=== PATIENT | male | born 1970 | race Asian ===

== ENCOUNTER 2017-07-07 00:08 | Emergency (ER) | payer MEDICAID, OTHER ==
[~2017-07-07] VITALS: Ht 185.4 cm; Wt 125.8 kg
[2017-07-07] MEDS ORDERED: ALBUTEROL/IPRATROPIUM 2.5MG/0.5MG, 3 ML ONE (00:41)
[2017-07-07] MEDS ORDERED: SODIUM CHLORIDE FLUSH 10ML SYR IVF ONE (01:00)
[2017-07-07] MEDS ORDERED: ALBUTEROL SULFATE 2.5 MG/3 ML NPPB ONE (01:00)
[2017-07-07] MEDS ORDERED: ASPIRIN 81 MG TABLET CHEW PO ONE ×2 (01:00→01:30)
[2017-07-07] MEDS ORDERED: SODIUM CHLORIDE 0.9% 1,000ML IVBOLUS ONE (01:00)
[2017-07-07] MEDS ORDERED: ONDANSETRON 2MG/ML, 2ML IVPush ONE (01:00)
[2017-07-07] MEDS ORDERED: KETOROLAC 30 MG/1 ML IVPush ONE (01:00)
[2017-07-07] MEDS ORDERED: ONDANSETRON 2MG/ML, 2ML ONE (01:02)
[2017-07-07] MEDS ORDERED: ASPIRIN 81 MG TABLET CHEW ONE (01:02)
[2017-07-07] MEDS ORDERED: KETOROLAC 30 MG/1 ML ONE (01:02)
[2017-07-07 01:06] LABS: ASPARTATE AMINO TRANSFERASE 21 U/L (15-37); BLOOD UREA NITROGEN 20 mg/dL (7-18)
[2017-07-07 01:12] LABS: IS PT STATUS REG ER OR PRE ER? YES
[2017-07-07 01:49] LABS: HEMOGLOBIN 18.2 g/dL (13.7-18.0); WHITE BLOOD COUNT 12.2 x10^3/uL (3.4-10)
[2017-07-07] MEDS ORDERED: OMNIPAQUE 350 MG/ML, 100ML BOTTLE ONE (02:18)
[2017-07-07] MEDS ORDERED: APAP/CODEINE 300/30MG TABLET PO PRN (03:30)
[2017-07-07 04:36] LABS: IS PT STATUS REG ER OR PRE ER? YES
[2017-07-07 04:43] VITALS: BP 131/88
== END 2017-07-07 04:59 | disposition home or self-care (01) ==
LOC: ED 00:40
DX: R07.9 Chest pain, unspecified (principal); J20.8 Acute bronchitis due to other specified organisms; E11.9 Type 2 diabetes mellitus without complications; J45.909 Unspecified asthma, uncomplicated; F17.200 Nicotine dependence, unspecified, uncomplicated
CPT/HCPCS: 36415; 71020; 71275; 80053; 84484; 85025; 93005; 94640; 96361; 96374; 96375; 99285; J1885; J2405; J7030; J7512; Q9967; J7613

== ENCOUNTER 2017-09-13 14:38 | Emergency (ER) | payer OTHER ==
[~2017-09-13] VITALS: Ht 185.4 cm; Wt 129.9 kg
[2017-09-13 14:44] VITALS: BP 138/91
== END 2017-09-13 16:58 | disposition home or self-care (01) ==
LOC: ED 16:50
DX: J06.9 Acute upper respiratory infection, unspecified (principal); J20.9 Acute bronchitis, unspecified; E11.65 Type 2 diabetes mellitus with hyperglycemia
CPT/HCPCS: 71046; 93005; 99284

== ENCOUNTER 2018-11-18 19:31 | Inpatient (IN) | payer OTHER ==
[~2018-11-18] VITALS: Ht 185.4 cm; Wt 130.2 kg
[~2018-11-18 19:31] MED LIST: KETOROLAC 30 MG/1 ML ONE
[2018-11-18] MEDS ORDERED: ONDANSETRON 2MG/ML, 2ML ONE ×2 (19:53→22:47)
[2018-11-18] MEDS ORDERED: HYDROmorphone 1 MG/ML, 1ML ONE (19:53)
[2018-11-18] MEDS ORDERED: HYDROmorphone 1 MG/ML, 1ML IV ONE (20:00)
--- NOTE | 2018-11-18 20:04 | NUR ---
PT RESTING IN BED, MEDICATED FOR PAIN, AWAITING CT
--- NOTE | 2018-11-18 20:27 | NUR ---
REPORT FROM DANIEL SOTO. PT SLEEPING SOUNDLY, AROUSABLE. PT UPDATED ON POC, NEED FOR URINE. URINAL AT BS, PT TO CT.
[2018-11-18] MEDS ORDERED: ONDANSETRON 2MG/ML, 2ML IVPush ONE (20:30)
[2018-11-18] MEDS ORDERED: SODIUM CHLORIDE FLUSH 10ML SYR IVF ONE (20:30)
[2018-11-18 20:34] LABS: BASOPHILS # (AUTO) 0.03 x10^3/uL (0-0.1); BASOPHILS % (AUTO) 0 % (0-1); EOSINOPHILS # (AUTO) 0.04 x10^3/uL (0-0.4); EOSINOPHILS % (AUTO) 0 % (1-7); LYMPHOCYTES # (AUTO) 1.62 x10^3/uL (1-3.4); LYMPHOCYTES % (AUTO) 10 % (22-44); MD NO; MEAN CORPUSCULAR HEMOGLOBIN 30.6 pg (27.5-34.5); MEAN CORPUSCULAR HGB CONC 33.8 g/dL (33.2-36.2); MEAN CORPUSCULAR VOLUME 90.4 fL (81-97); MEAN PLATELET VOLUME 7.6 fL (7.4-10.4); MONOCYTES % (AUTO) 3 % (2-9); NEUTROPHILS # (AUTO) 14.14 x10^3/uL (1.8-6.8); NEUTROPHILS % (AUTO) 87 % (42-75); PLATELET COUNT 261 x10^3/uL (130-400); RED BLOOD COUNT 5.56 x10^6/uL (4.38-5.82); RED CELL DISTRIBUTION WIDTH 13.4 % (9.4-14.8)
[2018-11-18 20:42] LABS: ALANINE AMINOTRANSFERASE 33 U/L (12-78); ALBUMIN 4.3 g/dL (3.4-5.0); ANION GAP 5 mmol/L (5-15); CALCIUM 8.7 mg/dL (8.5-10.1); CHLORIDE 104 mmol/L (98-107); CREATININE 1.17 mg/dL (0.7-1.3)
[2018-11-18 20:44] LABS: ALKALINE PHOSPHATASE 55 U/L (45-117); BILIRUBIN,TOTAL 0.7 mg/dL (0.2-1.0); TOTAL PROTEIN 8.7 g/dL (6.4-8.2)
--- NOTE | 2018-11-18 20:48 | NUR ---
REPORT TO MIRELA SOTO.
--- NOTE | 2018-11-18 20:55 | NUR ---
ASSUMED CARE FOR THIS PT. PT BACK FROM CT SCAN AWAITING RESULTS. PT RESTING AND REPORTS PAIN IS IMPROVED AFTER PAIN MEDS.
[2018-11-18] MEDS ORDERED: CEFOTETAN PMX 1GM/50ML 50 ML IV ONE (21:00)
[2018-11-18] MEDS ORDERED: SODIUM CHLORIDE 0.9% 1,000 ML IV ONE (21:00)
[2018-11-18] MEDS ORDERED: CEFOTETAN PMX 1GM/50ML 50 ML ONE (21:16)
[2018-11-18] MEDS ORDERED: BUPIVACAINE/PF-EPI 0.5% 1:200K ONE (21:16)
--- NOTE | 2018-11-18 21:27 | NUR ---
REPORT CALLED TO OR PT MEDICATED AND UNDRESSED. ERP TO BEDSIDE TO EXPLAIN SURGERY.
[2018-11-18] MEDS ORDERED: FENTANYL PF 250 MCG/5ML ONE (21:40)
[2018-11-18] MEDS ORDERED: SCOPOLAMINE PATCH, 1.5MG PATCH.TD72 TD PRN (22:00)
[2018-11-18] MEDS ORDERED: ALBUTEROL/IPRATROPIUM 2.5MG/0.5MG, 3 ML NPPB PRN (22:00)
[2018-11-18] MEDS ORDERED: MEPERIDINE/PF 25MG/0.5ML IVPush PRN (22:00)
[2018-11-18] MEDS ORDERED: PROMETHAZINE 25 MG/ML, 1ML IV PRN (22:00)
[2018-11-18] MEDS ORDERED: OXYcodone 5 MG/5 ML ORAL.SOL UDC PO PRN (22:00)
[2018-11-18] MEDS ORDERED: HYDROmorphone 2 MG/ML, 1ML IVPush PRN (22:00)
[2018-11-18] MEDS ORDERED: hydrALAzine 20 MG/ML, 1ML IV PRN (22:00)
[2018-11-18] MEDS ORDERED: MIDAZOLAM 1 MG/ML, 2ML IV PRN (22:00)
[2018-11-18] MEDS ORDERED: ONDANSETRON 2MG/ML, 2ML IV PRN (22:00)
[2018-11-18] MEDS ORDERED: METOPROLOL 1 MG/ML, 5ML IV PRN (22:00)
[2018-11-18] MEDS ORDERED: FENTANYL PF 100 MCG/2ML IV PRN (22:00)
[2018-11-18] MEDS ORDERED: ACETAMINOPHEN 325 MG TABLET PO PRN (22:00)
[2018-11-18] MEDS ORDERED: BUPIVACAINE/PF-EPI 0.5% 1:200K INFIL ONE (22:39)
[2018-11-18] MEDS ORDERED: PROPOFOL 10 MG/ML, 20ML ONE (22:46)
[2018-11-18] MEDS ORDERED: NEOSTIGMINE 1 MG/ML, 10ML ONE (22:46)
[2018-11-18] MEDS ORDERED: GLYCOPYRROLATE 0.2MG/1ML, 5ML ONE (22:46)
[2018-11-18] MEDS ORDERED: ROCURONIUM 10MG/ML,5ML ONE (22:46)
[2018-11-18] MEDS ORDERED: SUCCINYLCHOLINE 20 MG/ML, 10ML ONE (22:47)
[2018-11-18] MEDS ORDERED: DEXAMETHASONE 4 MG/ML, 1ML ONE (22:47)
[2018-11-18] MEDS ORDERED: FENTANYL PF 100 MCG/2ML ONE (23:20)
[2018-11-18] MEDS ORDERED: OXYcodone 5 MG/5 ML ORAL.SOL UDC ONE (23:21)
[2018-11-19] MEDS ORDERED: ONDANSETRON 2MG/ML, 2ML IVPush PRN (01:30)
[2018-11-19] MEDS ORDERED: MORPHINE SULFATE 4 MG/ML, 1ML IVPush PRN (01:30)
[2018-11-19] MEDS ORDERED: SODIUM CHLORIDE 0.9% 1,000 ML IV SCH (01:30)
[2018-11-19] MEDS ORDERED: ENALAPRILAT 1.25 MG/ML, 2ML IVPush PRN (01:30)
[2018-11-19 02:29] VITALS: BP 109/68
[2018-11-19] MEDS ORDERED: CEFOTETAN PMX 2GM/50ML 50 ML IV SCH (05:00)
[2018-11-19 06:44] VITALS: BP 125/60
[2018-11-19] MEDS ORDERED: OXYC-302 PO (11:15)
[2018-11-19 12:31] VITALS: BP 115/71
[2018-11-19 12:49] LABS: MICROSCOPIC NOT IND
[2018-11-19 13:08] LABS: CULTURE INDICATED? NO
[2018-11-19 17:25] VITALS: BP 128/81
[2018-11-19] MEDS ORDERED: SODIUM CHLORIDE FLUSH 10ML SYR IVF SCH (21:00)
== END 2018-11-19 17:58 | disposition home or self-care (01) | DRG 343 ==
LOC: ED 20:30 → EDIP 20:54 → OR 21:08 → 4NOR 11-19 → OBSVTOIN 11-19 00:39
PROVIDERS: ADMIT Surgery; ATTEND Surgery
PROC: 0DTJ4ZZ Resection of Appendix, Percutaneous Endoscopic Approach (ICD-10-PCS; principal; 2018-11-19)
DX: K35.80 Unspecified acute appendicitis (principal); E11.9 Type 2 diabetes mellitus without complications; E66.01 Morbid (severe) obesity due to excess calories; F17.210 Nicotine dependence, cigarettes, uncomplicated; G47.33 Obstructive sleep apnea (adult) (pediatric); I10 Essential (primary) hypertension; I25.10 Atherosclerotic heart disease of native coronary artery without angina pectoris; K66.8 Other specified disorders of peritoneum; K76.0 Fatty (change of) liver, not elsewhere classified; Z80.0 Family history of malignant neoplasm of digestive organs; I25.2 Old myocardial infarction; Z83.3 Family history of diabetes mellitus; Z84.1 Family history of disorders of kidney and ureter; Z91.19 Patient's noncompliance with other medical treatment and regimen; Z68.37 Body mass index [BMI] 37.0-37.9, adult
CPT/HCPCS: 36415; 99285; J3490; 71275; 74175; 80053; 81003; 83690; 85025; 88304; 93005; G0378; J1100; J1170; J1885; J2405; J2704; J2710; J3010; J0330; J7030

== ENCOUNTER 2019-04-05 01:18 | Emergency (ER) | payer SELFPAY ==
[~2019-04-05] VITALS: Ht 185.4 cm; Wt 131.2 kg
[2019-04-05 03:45] VITALS: BP 112/72
== END 2019-04-06 03:51 | disposition left against medical advice (07) ==
LOC: ED 03:45
DX: R07.9 Chest pain, unspecified (principal); Z91.14 Patient's other noncompliance with medication regimen; E11.65 Type 2 diabetes mellitus with hyperglycemia; E66.9 Obesity, unspecified
CPT/HCPCS: 36415; 71045; 80053; 84484; 85025; 93005; 96374; 99284; J2270